=== PATIENT | female | born 1985 | race Caucasian/White ===

== ENCOUNTER 2016-07-30 17:08 | Emergency (ER) | payer OTHER ==
[~2016-07-30] VITALS: Ht 160 cm; Wt 86.0 kg
[~2016-07-30 17:08] MED LIST: LEVO50TA PO; ONDA4TAB54 PO; PANT40TA PO; PRENTAB26 PO
[2016-07-30 17:26] VITALS: BP 123/83; PULSE 94; TEMP 36.9; O2SAT 95; Ht 160 cm; Wt 86.0 kg
== END 2016-07-30 18:20 | disposition left against medical advice (07) ==
LOC: C.EDB 17:08
DX: R10.9 Unspecified abdominal pain (principal)

== ENCOUNTER → 2017-02-17 | Outpatient (CLI) | payer OTHER | END | disposition home or self-care (01) | LOC: C.LABMFLN 16:44 | PROVIDERS: ATTEND Family Medicine | DX: J02.9 Acute pharyngitis, unspecified (principal) ==